=== PATIENT | male | born 1960 | race Caucasian/White ===

== ENCOUNTER 2023-10-26 10:59 | Emergency (ER) | payer BC, SELFPAY ==
[2023-10-26 11:08] VITALS: BP 107/69
--- NOTE | 2023-10-26 11:34 | ED.GENMED ---
History of Present Illness
General
Chief Complaint: Musculo-Skeletal Complaint
Source: patient
Exam Limitations: none
Time Seen by Provider: 10/26/23 11:15
Nursing documentation reviewed up to this point in time: agreed with
Travel History
Have you had any contact with someone who has COVID-19?: No
Do you have any symptoms of coronavirus? Fever > 100 degrees, chills, cough, shortness of breath, sore throat, loss of taste or smell, muscle aches, or headache?: No
History of Present Illness
History of Present Illness:
Patient is a 63-year-old [id number] male who presents to the emergency department with increasing pain and swelling of his right forearm for the past week. Patient states he can barely move his right hand secondary to pain in the forearm.
30 years ago the patient had his right forearm caught in a duster which led to extensive repair with screws and plates. Patient states that hurts right where 1 screw was that was removed 5 years ago. Patient denies numbness or paresthesias.
Patient denies fever or chills. Patient has noted some increased redness on the volar aspect of the right forearm where the pain is. Patient does have a cardiac history but denies any chest pain or shortness of breath. Patient states that this
started spontaneously.
Past History
Past History
ED Past Medical History: CAD, GERD, HTN and Hypercholesterolemia
ED Past Surgical History: Orthopedic and Tonsilectomy
Social History
Tobacco: Smoker
Alcohol: None
Drug: None
Living: with family
Employment: Employed
Family History
Family History: Hypertension; Negative Early CAD
Review of Systems
Review of Systems
All Other Systems: ROS reviewed and negative except as documented in HPI and ROS
Constitutional: Denies fever or chills
Respiratory: Reports no symptoms
Cardiac: Reports no symptoms
Musculoskeletal: Reports other (Right forearm pain)
Skin: Reports other (Increased erythema over the mid right forearm to the antecubital fossa)
Neurological: Denies weakness or numbness
Hematologic/Lymphatic: Denies bruising
Phy Exam
Physical Exam
Physical Exam:
Physical Exam
General: moderate distress, alert and appropriate, well nourished, well hydrated
HENT: Normocephalic, supple with no lymphadenopathy, no thyromegaly
Eyes: Clear sclera, conjuctiva without injection
Heart: Regular rhythm and rate. No S3, S4. No murmur.
Lungs: No respiratory distress, no stridor, lung sounds clear and equal bilaterally, chest wall symmetrical and nontender
Abdomen: Soft, nontender
Neuro: Alert and oriented x 3, CN II - XII intact, no motor focality, no cerebellar dysfunction
Skin: Mild erythema on the proximal volar forearm
Psychiatric: well kept. interactive and cooperative
Extremities: No edema, cyanosis. Good and equal peripheral pulses. Contreras's test is intact the right hand. The right volar forearm shows old surgical scars. And on the radial aspect approximately midway is tenderness and
fullness with associated erythema.
Scores
Heart Failure Risk
Heart Failure Risk Score: Not Applicable
Heart Score for Chest Pain Patients
STEMI patient?: Not applicable
Withdrawal Assessment of Alcohol
Withdrawal Assessment Completed?: Not applicable
Course
Orders/Labs/Results
Orders:
Orders
10/26/23 11:31
CT Upper Ext W/iv Cont Rt Urgent
Comment:
Reason For Exam: pain/swelling R forearm prev ortho surgery/injury
0.9% Sodium Chloride 1000 ml [Nss] 1,000 ml IV BOLUS
Ketorolac [Toradol] 15 mg IV NOW STA
10/26/23 11:48
Complete Blood Count/With Diff Urgent
Comprehensive Metabolic Panel Urgent
PTT Urgent
Prothrombin Time Urgent
Sed Rate [Erythrocyte Sed Rate] Urgent
Abnormal Lab Results
10/26/23
11:48
MCH 31.1 H pg
(27.0-31.0)
ESR 24 H mm/hour
(0-20)
Sodium 134 L mmol/L
(135-145)
Glucose 116 H mg/dl
(70-99)
10/26/23 11:48
10/26/23 11:48
Vital Signs
Initial and Last Documented VS:
Initial Vital Signs
Temp Pulse Resp BP Pulse Ox
98.6 F 94 22 107/69 95
10/26/23 11:08 10/26/23 11:08 10/26/23 11:08 10/26/23 11:08 10/26/23 11:08
Last Documented Vital Signs
Temp Pulse Resp BP Pulse Ox
98.6 F 94 22 107/69 95
10/26/23 11:08 10/26/23 11:08 10/26/23 11:08 10/26/23 11:08 10/26/23 11:08
*Radiology
Radiology exam reviewed: radiology read reviewed
*Pulse Oximetry
Patient hypoxic: no
*EKG
Interpreted by ED Provider?: NA
*Leathersmith Interpretation
Rate: Leathersmith- N/A
*Critical Care Note
Total Time (30-74mins, 75-104mins- exclusive of procedures): Not Applicable
Update Note
Update Note:
Patient felt better after medication. Will place the patient on antibiotics and anti-inflammatories with splint and sling for comfort. Will refer patient to orthopedics.
ED Attending Note
-
Portions of this chart may have been created with voice recognition software.� Occasional wrong word or��sound alike� substitutions may have occurred due to the inherent limitations of voice recognition software.
Discharge Plan
Departure
Patient Disposition: Home (Routine Discharge)
Date of Disposition: 10/26/23
Time of Disposition: 15:53
Patient with high blood pressure during this ER visit?: No
Condition: Fair
Covid-19: Not Applicable
Discharge Problem:
Right forearm pain
Instructions: Muscle and Bone Pain (DC), Using Cold for Pain, Splint Care
Prescriptions:
New
cephalexin 500 mg capsule
500 mg PO BID 10 Days Qty: 20 0RF
oxycodone 5 mg tablet
5 mg PO Q4H PRN (Reason: Pain) Qty: 14 0RF
prednisone 20 mg tablet
20 mg PO BID Qty: 10 0RF
No Action
aspirin 81 MG tablet,delayed release (DR/EC)
81 mg PO DAILY
atorvastatin [Lipitor] 20 mg Tablet
20 mg PO HS
lisinopril-hydrochlorothiazide 20-12.5 mg Tablet
1 tab PO DAILY
Patient Comments:
patient said they d/c the lisinopril 20mg daily and kept him on the combination tablet
sertraline 50 mg Tablet
50 mg PO DAILYPRN PRN (Reason: anxiety)
loratadine [Claritin] 10 mg Tablet
10 mg PO HSPRN PRN (Reason: allergies)
tadalafil 20 mg Tablet
10 mg PO DAILYPRN PRN (Reason: ed)
Referrals:
Farzad Hoyt MD [Active] - Call in 1-3 days for appt
Dominique Bui DO [Family Provider] - As needed
Interventions
Interventions:
*Risk Screen - Suicide Last Done: 10/26/23 11:14
*General Assessment Last Done: 10/26/23 11:14
*Neglect/Abuse Screening Last Done: 10/26/23 11:14
ED- Fall Risk Assessment Last Done: 10/26/23 12:45
*ED COVID-19 Vaccine History Last Done: 10/26/23 11:13
ED-Musculoskeletal Assessment Last Done: 10/26/23 12:45
[2023-10-26] MEDS: TORADOL 15 MG IV ×2 (11:47→16:02)
[2023-10-26] MEDS: NSS 1000 IV (11:47)
[2023-10-26 11:56] LABS: % Eosinophils 2.1 % (0-6); % Immature Granulocytes 0.3 % (0-0.5); % Lymphocytes 31.3 % (20.5-51.1); % Monocytes 8.1 % (1.7-9.3); % Neutrophils 57.2 % (42.2-75.2); Absolute Basophils 0.1 10^3/uL (0-0.2); Absolute Eosinophils 0.2 10^3/uL (0-0.7); Absolute Lymphocytes 2.3 10^3/uL (1.2-3.4); Absolute Monocytes 0.6 10^3/uL (0.1-0.6); Absolute Neutrophils 4.1 10^3/uL (1.4-6.5); Hematocrit 42.3 % (39.0-52.0); Hemoglobin 15.2 g/dL (13.0-18.0); Mean Corp Hgb Conc. 35.9 g/dL (33.0-37.0); Mean Corpuscular Hgb 31.1 pg (27.0-31.0); Mean Corpuscular Volume 86.7 fL (80.0-94.0); Mean Platelet Volume 10.2 fL (7.4-10.4); Nucleated Red Blood Cells % 0 % (-); Platelet Count 280 10^3/uL (130-400); Red Blood Cell Count 4.88 10^6/uL (4.70-6.10); Red Cell Dist. Width 12.5 % (11.5-14.5); White Blood Cell Count 7.2 10^3/uL (4.8-10.8)
[2023-10-26 12:06] LABS: INR 0.96; PT 12.9 Sec (11.4-14.6)
[2023-10-26 12:07] LABS: APTT 27.4 Sec (23.4-35.0)
[2023-10-26 12:11] LABS: ALT (SGPT) 23 U/L (0-50); AST (SGOT) 27 U/L (17-59); Alkaline Phosphatase 86 U/L (38-126); Blood Urea Nitrogen 16 mg/dl (9-20); Calcium 9.3 mg/dl (8.4-10.2); Carbon Dioxide 23 mmol/L (22-30); Chloride 107 mmol/L (98-107); Glucose 116 mg/dl (70-99); Potassium 4.1 mmol/L (3.5-5.1); Sodium 134 mmol/L (135-145); Total Bilirubin 0.7 mg/dl (0.2-1.3); Total Protein 6.8 g/dl (6.3-8.2); eGFR > 60.00
[2023-10-26 12:24] LABS: Erythrocyte Sed Rate 24 mm/hour (0-20)
[2023-10-26] MEDS: ANCEF 5 IV (16:29)
== END 2023-10-26 16:55 | disposition home or self-care (01) ==
LOC: EMR 10:59
PROVIDERS: EMERGENCY PHYSICIAN Emergency Medicine; FAMILY PHYSICIAN Family Medicine
DX: M79.603 Pain in arm, unspecified (principal); F17.200 Nicotine dependence, unspecified, uncomplicated; I10 Essential (primary) hypertension
CPT/HCPCS: 99284; 96374; 96375; 96361; 29125; 96376; 73201; 80053; 85025; 85610; 85652; 85730; Q9967

== ENCOUNTER → 2024-07-20 08:37 | Outpatient (REF) | payer BC, SELFPAY | LOC: HWRAD 08:37 | PROVIDERS: ATTENDING PHYSICIAN Family Medicine | DX: Z87.891 Personal history of nicotine dependence (principal) | CPT/HCPCS: 71271 ==

== ENCOUNTER → 2025-08-22 14:56 | Outpatient (REF) | payer BC, SELFPAY | LOC: RAD 14:56 | PROVIDERS: ATTENDING PHYSICIAN Family Medicine | DX: Z72.0 Tobacco use (principal) | CPT/HCPCS: 76770 ==

== ENCOUNTER → 2025-09-12 09:41 | Outpatient (REF) | payer BC, SELFPAY | LOC: HWRAD 09:41 | PROVIDERS: ATTENDING PHYSICIAN Family Medicine | DX: Z87.891 Personal history of nicotine dependence (principal); Z72.0 Tobacco use | CPT/HCPCS: 71271 ==